=== PATIENT | female | born 1990 | race African-American/Black ===

== ENCOUNTER 2018-08-24 23:28 | Emergency (ER) | payer SELFPAY ==
[2018-08-25 00:30] LABS: ABSOLUTE EOSINOPHILS # (AUTO) 0.2 10^3/uL (0.0-0.6); ABSOLUTE LYMPHOCYTES (AUTO) 4.5 10^3/uL (0.5-4.7); ABSOLUTE MONOCYTES (AUTO) 0.5 10^3/uL (0.1-1.4); ABSOLUTE NEUT (AUTO) 3.5 10^3/uL (1.7-8.2); BASOPHILS % (AUTO) 0.5 % (0-2); EOSINOPHILS % (AUTO) 1.9 % (0-6); HEMATOCRIT 36.3 % (36.0-47.0); HEMOGLOBIN 12.7 g/dL (12.0-15.5); LYMPHOCYTES % (AUTO) 51.5 % (13-45); MEAN CORPUSCULAR HEMOGLOBIN 33.2 pg (27.0-33.4); MEAN CORPUSCULAR HGB CONC 34.9 g/dL (32.0-36.0); MEAN CORPUSCULAR VOLUME 95 fl (80-97); MONOCYTES % (AUTO) 5.5 % (3-13); PLATELET COUNT 253 10^3/uL (150-450); RED BLOOD COUNT 3.82 10^6/uL (3.72-5.28); RED CELL DISTRIBUTION WIDTH 13.2 % (11.5-14.0); SEGMENTED NEUTROPHILS % (AUTO) 40.6 % (42-78); TOTAL CELLS COUNTED % (AUTO) 100 %; WHITE BLOOD COUNT 8.7 10^3/uL (4.0-10.5)
[2018-08-25 00:47] LABS: ALANINE AMINOTRANSFERASE 101 U/L (9-52); ALBUMIN 3.8 g/dL (3.5-5.0); ALKALINE PHOSPHATASE 60 U/L (38-126); ANION GAP 7 (5-19); ASPARTATE AMINO TRANSFERASE 95 U/L (14-36); BILIRUBIN,DIRECT 0.2 mg/dL (0.0-0.4); BILIRUBIN,TOTAL 0.3 mg/dL (0.2-1.3); BLOOD UREA NITROGEN 10 mg/dL (7-20); CALCIUM 9.9 mg/dL (8.4-10.2); CARBON DIOXIDE 28 mmol/L (22-30); CHLORIDE 107 mmol/L (98-107); GLUCOSE 106 mg/dL (75-110); LIPASE 70.8 U/L (23-300); POTASSIUM 4.1 mmol/L (3.6-5.0); SODIUM 141.8 mmol/L (137-145); TOTAL PROTEIN 6.4 g/dL (6.3-8.2)
[2018-08-25] MEDS ORDERED: NORMAL SALINE 1000 ML 1,000 ML IV ONE (01:21)
[2018-08-25] MEDS ORDERED: IBUPROFEN SUSP 100 MG/5 ML ORAL SYRINGE PO ONE (01:28)
[2018-08-25] MEDS ORDERED: ONDANSETRON HCL INJ/PF 4 MG/2 ML SDV IV ONE (01:28)
--- NOTE | 2018-08-25 01:42 | ER Document Report ---
ED Medical Screen (RME) - General Chief Complaint: Abdominal Pain Stated Complaint: ABDOMINAL PAIN Time Seen by Provider: 08/25/18 01:19 Mode of Arrival: Ambulatory Information source: Patient Notes: 28-year-old female presents to ED for abdominal pain nausea with gas type pains to the right upper quadrant. She states she has had similar pain in the past for moving to [place] and they told her that it was a gastric ulcer. She states she has been severely nauseated all day and the pain now is in the right upper quadrant going around to the back. CBC and chemistry were drawn before I examined the patient and she has elevated liver enzymes but no elevated white count. A test was not checked but she states that she is in day monogamous relationship with another female. Patient is alert oriented respirations regular and unlabored, lungs clear, and tenderness to the right upper quadrant. test, Zofran, ibuprofen, and ultrasound of the upper abdomen ordered. I have greeted and performed a rapid initial assessment of this patient. A comprehensive ED assessment and evaluation of the patient, analysis of test results and completion of medical decision making process will be conducted by an additional ED providers. TRAVEL OUTSIDE OF THE U[place] IN LAST 30 DAYS: No - Related Data Allergies/Adverse Reactions: hydrocodone [Hydrocodone] Allergy (Severe, Verified 12/30/15 22:32) naproxen [Naproxen] Allergy (Unknown, Verified 12/30/15 22:32) Past Medical History - Social History Chew tobacco use (# tins/day): No Frequency of alcohol use: None Drug Abuse: None Pulmonary Medical History: Reports: Hx Bronchitis Neurological Medical History: Reports: Hx Migraine, Hx Seizures - last seizure 2008. Renal/ Medical History: Denies: Hx Peritoneal Dialysis Musculoskeltal Medical History: Reports Hx Arthritis, Reports Hx Musculoskeletal Trauma - facial fractures Psychiatric Medical History: Reports: Hx Depression Traumatic Medical History: Reports: Hx Fractures - facial - Immunizations Immunizations up to date: No Hx Diphtheria, Pertussis, Tetanus Vaccination: Yes - 1999 Physical Exam - Vital signs Vitals: Temp Pulse Resp BP Pulse Ox 98.6 F 86 18 136/79 H 98 08/24/18 23:29 08/24/18 23:29 08/24/18 23:29 08/24/18 23:29 08/24/18 23:29 Course - Vital Signs Vital signs: Temp Pulse Resp BP Pulse Ox 98.6 F 86 18 136/79 H 98 08/24/18 23:29 08/24/18 23:29 08/24/18 23:29 08/24/18 23:29 08/24/18 23:29 - Laboratory Result Diagrams: 08/25/18 00:15 08/25/18 00:15 Laboratory results interpreted by me: 08/25/18 08/25/18 00:15 00:15 Seg Neutrophils % 40.6 L Lymphocytes % 51.5 H AST 95 H ALT 101 H
[2018-08-25] MEDS ORDERED: KETOROLAC TROMETHAMINE INJ/PF 30 MG/1 ML SDV IV ONE (02:02)
--- NOTE | 2018-08-25 02:02 | RADIOLOGY REPORT (SQ) ---
EXAM DESCRIPTION: US ABDOMEN DOPPLER LIMITED COMPLETED DATE/TME: 08/25/2018 01:19 CLINICAL HISTORY: 28 years, Female, ruq abdominal pain COMPARISON: None. TECHNIQUE: Limited right upper quadrant ultrasound LIMITATIONS: None. FINDINGS: Echogenic appearance to the liver consistent with fatty infiltrative change. The visualized abdominal aorta, inferior vena cava, right kidney, pancreas are unremarkable. Multiple shadowing stones throughout the gallbladder lumen. No gallbladder wall thickening or pericholecystic fluid. CBD measures 2.1 mm. Negative sonographic Lewis sign. No ascites IMPRESSION: Cholelithiasis. No sonographic evidence for cholecystitis. Fatty infiltrative change to the liver copyright [address] [email or web address]- All Rights Reserved
[2018-08-25 02:11] LABS: APPEARANCE,URINE SLIGHTLY-CLOUDY; BILIRUBIN,URINE NEGATIVE (NEGATIVE); COLOR,URINE YELLOW; GLUCOSE, URINE NEGATIVE (NEGATIVE); KETONES,URINE NEGATIVE (NEGATIVE); LEUKOCYTE ESTERASE,URINE NEGATIVE (NEGATIVE); NITRITE,URINE NEGATIVE (NEGATIVE); PROTEIN,URINE NEGATIVE (NEGATIVE)
[2018-08-25] MEDS ORDERED: FENTANYL CITRATE INJ/PF 100 MCG/2 ML AMPUL IV ONE (02:43)
--- NOTE | 2018-08-25 03:13 | ER Document Report ---
ED General - General Chief Complaint: Abdominal Pain Stated Complaint: ABDOMINAL PAIN Time Seen by Provider: 08/25/18 01:19 Primary Care Provider: LAUREN REEDER FNP-C [Primary Care Provider] - Follow up as needed Mode of Arrival: Ambulatory Notes: RME Provider note: 28-year-old female presents to ED for abdominal pain nausea with gas type pains to the right upper quadrant. She states she has had similar pain in the past for moving to [place] and they told her that it was a gastric ulcer. She states she has been severely nauseated all day and the pain now is in the right upper quadrant going around to the back. CBC and chemistry were drawn before I examined the patient and she has elevated liver enzymes but no elevated white count. A test was not checked but she states that she is in day monogamous relationship with another female. Patient is alert oriented r espirations regular and unlabored, lungs clear, and tenderness to the right upper quadrant. test, Zofran, ibuprofen, and ultrasound of the upper abdomen ordered. MY HPI: Patient states she has also had intermittent episodes of diarrhea, is denying any blood. She stated she is nauseous but is denying any vomiting. Patient states her last menstrual period was July 27. TRAVEL OUTSIDE OF THE U.S. IN LAST 30 DAYS: No - Related Data Allergies/Adverse Reactions: hydrocodone [Hydrocodone] Allergy (Severe, Verified 12/30/15 22:32) naproxen [Naproxen] Allergy (Unknown, Verified 12/30/15 22:32) Past Medical History - General Information source: Patient - Social History Smoking Status: Current Every Day Smoker Chew tobacco use (# tins/day): No Frequency of alcohol use: None Drug Abuse: None Family History: Reviewed & Not Pertinent, Arthritis, CAD, CVA, DM, Hyperlipidemia, Hypertension, Malignancy, Thyroid Disfunction Patient has suicidal ideation: No Patient has homicidal ideation: No Pulmonary Medical History: Reports: Hx Bronchitis Neurological Medical History: Reports: Hx Migraine, Hx Seizures - last seizure 2008. Renal/ Medical History: Denies: Hx Peritoneal Dialysis Musculoskeletal Medical History: Reports Hx Arthritis, Reports Hx Muscu loskeletal Trauma - facial fractures Psychiatric Medical History: Reports: Hx Depression Traumatic Medical History: Reports: Hx Fractures - facial - Immunizations Immunizations up to date: No Hx Diphtheria, Pertussis, Tetanus Vaccination: Yes - 1999 Hx Pneumococcal Vaccination: 06/21/00 Review of Systems - Review of Systems Constitutional: No symptoms reported. denies: Fever EENT: No symptoms reported Cardiovascular: No symptoms reported Respiratory: No symptoms reported Gastrointestinal: See HPI Genitourinary: No symptoms reported. denies: Burning, Dysuria Female Genitourinary: See HPI Musculoskeletal: See HPI Skin: No symptoms reported Hematologic/Lymphatic: No symptoms reported Neurological/Psychological: No symptoms reported Physical Exam - Vital signs Vitals: Temp Pulse Resp BP Pulse Ox 98.6 F 86 18 136/79 H 98 08/24/18 23:29 08/24/18 23:29 08/24/18 23:29 08/24/18 23:29 08/24/18 23:29 - Notes Notes: GENERAL: Alert, interacts well. No acute distress. HEAD: Normocephalic, atraumatic. EYES: Pupils equal, round, and reactive to light. Extraocular movements intact. ENT: Oral mucosa moist, tongue midline. NECK: Full range of motion. Supple. Trachea midline. LUNGS: Clear to auscultation bilaterally, no wheezes, rales, or rhonchi. No respiratory distress. HEART: Regular rate and rhythm. No murmur ABDOMEN: Soft, positive Lewis sign noted, minor epigastric abdominal pain. No McBurney's point tenderness. Non-distended. Bowel sounds present in all 4 quadrants. EXTREMITIES: Moves all 4 extremities spontaneously. No edema, normal radial and dorsalis pedis pulses bilaterally. No cyanosis. BACK: no cervical, thoracic, lumbar midline tenderness. No saddle anesthesia, normal distal neurovascular exam. No CVA tenderness noted bilaterally NEUROLOGICAL: Alert and oriented x3. Normal speech. cranial nerves II through XII grossly intact PSYCH: Normal affect, normal mood. SKIN: Warm, dry, normal turgor. No rashes or lesions noted. Course - Re-evaluation Re-evalutation: Patient's labs show no signs of leukocytosis, no signs of anemia, no signs of electrolyte abnormalities. She does have an increase in her LFTs, hCG is negative, urine is also negative for infection. Patient's ultrasound shows cholelithiasis with a fatty liver, no signs of cholecystitis. Discussed this at length with patient at bedside. She states that she is moving to [place] so she does not want referrals for our surgeons or to [facility] due to her not being insured. Patient states when she gets her insurance back she will follow- up with a primary care provider in [place]. Patient states initial Toradol did not help her pain at all. Fentanyl has helped her discomfort. Patient states she has to be awake in order to take care of her children during the day so she does not want narcotic pain medications. Discussed return precautions and need for close follow-up with primary care provider and/or surgery. - Vital Signs Vital signs: Temp Pulse Resp BP Pulse Ox 98.2 F 64 16 133/79 H 100 08/25/18 02:13 08/25/18 02:13 08/25/18 02:13 08/25/18 02:13 08/25/18 02:13 - Laboratory Result Diagrams: 08/25/18 00:15 08/25/18 00:15 Laboratory results interpreted by me: 08/25/18 08/25/18 08/25/18 00:15 00:15 00:15 Seg Neutrophils % 40.6 L Lymphocytes % 51.5 H AST 95 H ALT 101 H Urine Urobilinogen 2.0 H Discharge - Discharge Clinical Impression: Fatty liver Cholelithiasis Qualifiers: Cholelithiasis location: other site Biliary obstruction: without biliary obstruction Qualified Code(s): K80.80 - Other cholelithiasis without obstruction Condition: Stable Disposition: HOME, SELF-CARE Instructions: Gallbladder Disease ([facility]) Additional Instructions: As we discussed you have been seen and treated in the emergency department for gallstones. You were seen for pain in your abdomen that is likely related to gallstones. Your work-up today does not show any signs that you need to have your gallbladder removed tonight. However, you will likely need surgery as an outpatient in the coming weeks. Please contact the surgery clinic in the next 24-48 hours to discuss the need for further evaluation and consideration of surgery. Return to the ED immediately if you develop worsening pain, persistent vomiting, become unable to tolerate fluids, have a fever of >100.4, or any other symptoms that are concerning to you. Because an inflammation in your gallbladder. At this point time there is no infection noted. Prescriptions: Ketorolac Tromethamine [Toradol 10 mg Tablet] 10 mg PO Q8HP PRN #24 tablet PRN Reason: Ondansetron [Zofran Odt 4 mg Tablet] 1 - 2 tab PO Q6 #10 tab.rapdis Forms: Return to Work Referrals: LAUREN REEDER, SUSTAINABILITY ANALYST-C [Primary Care Provider] - Follow up as needed
[2018-08-25 03:32] VITALS: BP 118/65
== END 2018-08-25 03:38 | disposition home or self-care (01) ==
LOC: ER 23:28
DX: K80.20 Calculus of gallbladder without cholecystitis without obstruction (principal); K76.0 Fatty (change of) liver, not elsewhere classified; R10.11 Right upper quadrant pain; R10.13 Epigastric pain; R14.1 Gas pain; R11.0 Nausea; R19.7 Diarrhea, unspecified; F17.200 Nicotine dependence, unspecified, uncomplicated; Z88.5 Allergy status to narcotic agent; Z88.8 Allergy status to other drugs, medicaments and biological substances
CPT/HCPCS: 99284; 96361; 96374; 96375; 36415; 83690; 84703; 85025; 80053; 81001; 76705; 93976; J3010; J1885; J2405; J7030

== ENCOUNTER 2018-08-25 08:29 | Inpatient (IN) | payer SELFPAY ==
[2018-08-25] MEDS ORDERED: NORMAL SALINE 1000 ML 1,000 ML IV ONE (09:57)
[2018-08-25] MEDS ORDERED: ONDANSETRON HCL INJ/PF 4 MG/2 ML SDV IV ONE (09:57)
[2018-08-25] MEDS ORDERED: MORPHINE SULFATE 10 MG/ML INJ IV ONE (09:57)
[2018-08-25 11:16] LABS: ABSOLUTE EOSINOPHILS # (AUTO) 0.1 10^3/uL (0.0-0.6); ABSOLUTE MONOCYTES (AUTO) 0.3 10^3/uL (0.1-1.4); ABSOLUTE NEUT (AUTO) 2.1 10^3/uL (1.7-8.2); BASOPHILS % (AUTO) 0.9 % (0-2); EOSINOPHILS % (AUTO) 1.7 % (0-6); HEMATOCRIT 36.8 % (36.0-47.0); HEMOGLOBIN 12.7 g/dL (12.0-15.5); LYMPHOCYTES % (AUTO) 43.3 % (13-45); MEAN CORPUSCULAR HEMOGLOBIN 32.8 pg (27.0-33.4); MEAN CORPUSCULAR HGB CONC 34.6 g/dL (32.0-36.0); MEAN CORPUSCULAR VOLUME 95 fl (80-97); MONOCYTES % (AUTO) 6.9 % (3-13); PLATELET COUNT 230 10^3/uL (150-450); RED BLOOD COUNT 3.87 10^6/uL (3.72-5.28); RED CELL DISTRIBUTION WIDTH 12.7 % (11.5-14.0); SEGMENTED NEUTROPHILS % (AUTO) 47.2 % (42-78); TOTAL CELLS COUNTED % (AUTO) 100 %; WHITE BLOOD COUNT 4.5 10^3/uL (4.0-10.5)
[2018-08-25 11:34] LABS: ALANINE AMINOTRANSFERASE 532 U/L (9-52); ALBUMIN 3.6 g/dL (3.5-5.0); ALKALINE PHOSPHATASE 75 U/L (38-126); ANION GAP 6 (5-19); ASPARTATE AMINO TRANSFERASE 716 U/L (14-36); BILIRUBIN,DIRECT 0.8 mg/dL (0.0-0.4); BLOOD UREA NITROGEN 8 mg/dL (7-20); CALCIUM 9.5 mg/dL (8.4-10.2); CARBON DIOXIDE 26 mmol/L (22-30); CHLORIDE 109 mmol/L (98-107); GLUCOSE 91 mg/dL (75-110); LIPASE 886.9 U/L (23-300); POTASSIUM 4.2 mmol/L (3.6-5.0); TOTAL PROTEIN 5.8 g/dL (6.3-8.2)
--- NOTE | 2018-08-25 12:54 | RADIOLOGY REPORT (SQ) ---
EXAM DESCRIPTION: CT ABD/PELVIS WITH IV ORAL COMPLETED DATE/TIME: 08/25/2018 12:35 pm REASON FOR STUDY: Cholelithiasis diffuse abdominal pain COMPARISON: None. TECHNIQUE: CT scan of the abdomen and pelvis performed using helical scanning technique with oral co ntrast and with dynamic intravenous contrast injection. Images reviewed with lung, soft tissue, and b one windows. Reconstructed coronal and sagittal MPR images reviewed. Delayed images for evaluation of the urinary system also acquired. All images stored on PACS. All CT scanners at this facility use dose modulation, iterative reconstruction, and/or weight based d osing when appropriate to reduce radiation dose to as low as reasonably achievable (ALARA). [facility]: Dose Right [facility]: CareDose [facility]: Dose Right [facility]: Teradose 4D [facility]: Choister CONTRAST TYPE AND DOSE: contrast/concentration: Isovue 350.00 mg/ml; Total Contrast Delivered: 100.0 ml; Total Saline Delivered: 72.0 ml RENAL FUNCTION: BUN 10 creatinine 0.72. RADIATION DOSE: CT Rad equipment meets quality standard of care and radiation dose reduction techniq ues were employed. CTDIvol: 18.5 - 20.2 mGy. DLP: 2040 mGy-cm.. LIMITATIONS: None. FINDINGS: LOWER CHEST: No significant findings. No nodules or infiltrates. LIVER: Normal size. No masses. No dilated ducts. SPLEEN: Normal size. No focal lesions. PANCREAS: No masses. No significant calcifications. No adjacent inflammation or peripancreatic fluid collections. Pancreatic duct not dilated. GALLBLADDER: Gallstones. No inflammatory changes to suggest cholecystitis. ADRENAL GLANDS: No significant masses or asymmetry. RIGHT KIDNEY AND URETER: No solid masses. No significant calcifications. No hydronephrosis or hyd roureter. LEFT KIDNEY AND URETER: No solid masses. No significant calcifications. No hydronephrosis or hydr oureter. AORTA AND VESSELS: No aneurysm. No dissection. Renal arteries, SMA, celiac without stenosis. RETROPERITONEUM: No retroperitoneal adenopathy, hemorrhage or masses. BOWEL AND PERITONEAL CAVITY: No masses or inflammatory changes. No free fluid or peritoneal masses. APPENDIX: Normal. PELVIS: No mass. No free fluid. Normal bladder. ABDOMINAL WALL: No masses. Diastases of the rectus abdominus muscles. BONES: No significant or acute findings. OTHER: No other significant finding. IMPRESSION: GALLSTONES. NO OTHER SIGNIFICANT OR ACUTE FINDING IN THE ABDOMEN OR PELVIS ON CT SCAN W ITH IV CONTRAST. TECHNICAL DOCUMENTATION: JOB ID: [id number] Quality ID # [id number]: Final reports with documentation of one or more dose reduction techniques (e.g., Au tomated exposure control, adjustment of the mA and/or kV according to patient size, use of iterative reconstruction technique) 2010 [employer]- All Rights Reserved Reading location - IP/workstation name: [email or web address]
--- NOTE | 2018-08-25 13:00 | ER Document Report ---
ED General - General Chief Complaint: Abdominal Pain Stated Complaint: ABDOMINAL PAIN Time Seen by Provider: 08/25/18 09:01 TRAVEL OUTSIDE OF THE U.S. IN LAST 30 DAYS: No - HPI Patient complains to provider of: Abdominal pain Notes: Patient coming in for evaluation of abdominal pain. Patient was seen night prior to arrival discharged approximately 3 AM. Patient states abdominal pain and vomiting continued F which came back to the ER for further evaluation. Previous note laboratory studies along ultrasound were reviewed. Patient upon my evaluation is an obese female patient is unable to localize any pain but is rubbing her abdomen stating that she hurts all over. Patient denies any diarrhea. Denies any trauma to the area. Patient looks to be in no obvious distress upon my evaluation - Related Data Allergies/Adverse Reactions: hydrocodone [Hydrocodone] Allergy (Severe, Verified 12/30/15 22:32) naproxen [Naproxen] Allergy (Unknown, Verified 12/30/15 22:32) Past Medical History - Social History Smoking Status: Unknown if Ever Smoked Family History: Reviewed & Not Pertinent, Arthritis, CAD, CVA, DM, Hyperlipidemia, Hypertension, Malignancy, Thyroid Disfunction Patient has suicidal ideation: No Patient has homicidal ideation: No Pulmonary Medical History: Reports: Hx Bronchitis Neurological Medical History: Reports: Hx Migraine, Hx Seizures - last seizure 2008. Renal/ Medical History: Denies: Hx Peritoneal Dialysis Musculoskeletal Medical History: Reports Hx Arthritis, Reports Hx Musculoskeletal Trauma - facial fractures Psychiatric Medical History: Reports: Hx Depression Traumatic Medical History: Reports: Hx Fractures - facial - Immunizations Immunizations up to date: No Hx Diphtheria, Pertussis, Tetanus Vaccination: Yes - 1999 Hx Pneumococcal Vaccination: 06/21/00 Review of Systems - Review of Systems Constitutional: No symptoms reported EENT: No symptoms reported Cardiovascular: No symptoms reported Respiratory: No symptoms reported Gastrointestinal: Abdominal pain, Nausea, Vomiting Genitourinary: No symptoms reported Female Genitourinary: No symptoms reported Musculoskeletal: No symptoms reported Skin: No symptoms reported Hematologic/Lymphatic: No symptoms reported Neurological/Psychological: No symptoms reported -: Yes All other systems reviewed and negative Physical Exam - Vital signs Vitals: Temp Pulse Resp BP Pulse Ox 98.2 F 74 18 126/66 H 100 08/25/18 08:44 08/25/18 08:44 08/25/18 08:44 08/25/18 08:44 08/25/18 08:44 Interpretation: Normal - General General appearance: Appears well, Alert - HEENT Head: Normocephalic, Atraumatic Eyes: Normal Pupils: PERRL - Respiratory Respiratory status: No respiratory distress Chest status: Nontender Breath sounds: Normal Chest palpation: Normal - Cardiovascular Rhythm: Regular Heart sounds: Normal auscultation Murmur: No - Abdominal Inspection: Obese Distension: No distension Bowel sounds: Normal Tenderness: Tender - Diffuse tenderness Organomegaly: No organomegaly - Back Back: Normal, Nontender - Extremities General upper extremity: Normal inspection, Nontender, Normal color, Normal ROM, Normal temperature General lower extremity: Normal inspection, Nontender, Normal color, Normal ROM, Normal temperature, Normal weight bearing. No: Yosi's sign - Neurological Neuro grossly intact: Yes Cognition: Normal Orientation: AAOx4 Jason Coma Scale Eye Opening: Spontaneous Jason Coma Scale Verbal: Oriented [place] Coma Scale Motor: Obeys Commands Jason Coma Scale Total: 15 Speech: Normal Motor strength normal: LUE, RUE, LLE, RLE Sensory: Normal - Psychological Associated symptoms: Normal affect, Normal mood - Skin Skin Temperature: Warm Skin Moisture: Dry Skin Color: Normal Course - Re-evaluation Re-evalutation: 08/25/18 12:56 Reviewed previous lab work and ultrasound. These were performed approximately 1 to 3:00 in the morning. Patient's physical examination reveals diffuse tenderness but no focal point. I discussed the case with the surgeon on-call Dr. Fischer who did come down and evaluate the patient at bedside. Dr Fischer Recommends a CT iv oral for further evaluation also will repeat laboratory studies states CT scans otherwise normal will admit the patient for cholecystectomy 08/25/18 12:57 - Vital Signs Vital signs: Temp Pulse Resp BP Pulse Ox 98.2 F 74 18 126/66 H 100 08/25/18 08:44 08/25/18 08:44 08/25/18 08:44 08/25/18 08:44 08/25/18 08:44 - Laboratory Result Diagrams: 08/25/18 11:02 08/25/18 11:02 Laboratory results interpreted by me: 08/25/18 11:02 Chloride 109 H Direct Bilirubin 0.8 H AST 716 H ALT 532 H Total Protein 5.8 L Lipase 886.9 H Discharge - Discharge Clinical Impression: Cholelithiasis, Elevated LFTs Condition: Good Disposition: ADMITTED OBSERVATION Admitting Provider: Surgicalist - [facility] Admitted: OR
--- NOTE | 2018-08-25 14:04 | PDOC H&P ---
History of Present Illness Admission Date/PCP: KOLBY DIAZ Patient complains of: Abdominal pain History of Present Illness: CHACORTA PLATA is a 28 year old female presenting with a several day history of diffuse abdominal pain especially in the right upper quadrant with associated nausea and vomiting. Some diarrhea yesterday. No fever. No jaundice. Denies any alcohol abuse. No history of trauma. Past Medical History Pulmonary Medical History: Reports: Bronchitis Neurological Medical History: Reports: Migraine, Seizures - last seizure 2008. Musculoskeltal Medical History: Reports: Arthritis Psychiatric Medical History: Reports: Depression Past Surgical History Past Surgical History: Reports: Other - Eye surgery for trauma in the remote past. Social History Smoking Status: Current Some Day Smoker Frequency of Alcohol Use: Rare Hx Recreational Drug Use: No Hx Prescription Drug Abuse: No Family History Family History: Reviewed & Not Pertinent, Arthritis, CAD, CVA, DM, Hyperlipidemia, Hypertension, Malignancy, Thyroid Disfunction Parental Family History Reviewed: Yes Children Family History Reviewed: Yes Sibling(s) Family History Reviewed.: Yes Medication/Allergy Home Medications: No.137/Iron/Folic Acd [ Tablet] 1 each PO DAILY 09/02/14 Ibuprofen 1 tab PO Q8HP PRN 03/03/15 Oxycodone HCl/Acetaminophen [Percocet 5-325 mg Tablet] 1 - 2 tab PO Q4H PRN #10 tablet 08/11/15 Penicillin V Potassium [Penicillin Vk 500 mg Tablet] 500 mg PO Q6 #40 tablet 08/11/15 Promethazine HCl [Phenergan 25 mg Tablet] 25 - 50 mg PO ASDIR PRN #12 tablet 12/01/15 Ondansetron [Zofran Odt] 8 mg PO Q8HP PRN #10 tab.rapdis 12/31/15 Ketorolac Tromethamine [Toradol 10 mg Tablet] 10 mg PO Q8HP PRN #24 tablet 08/25/18 Ondansetron [Zofran Odt 4 mg Tablet] 1 - 2 tab PO Q6 #10 tab.rapdis 08/25/18 Allergies/Adverse Reactions: hydrocodone [Hydrocodone] Allergy (Severe, Verified 12/30/15 22:32) naproxen [Naproxen] Allergy (Unknown, Verified 12/30/15 22:32) Physical Exam Vital Signs: Temp Pulse Resp BP Pulse Ox 98.2 F 74 18 126/66 H 100 08/25/18 08:44 08/25/18 08:44 08/25/18 08:44 08/25/18 08:44 08/25/18 08:44 General appearance: PRESENT: no acute distress, cooperative Eye exam: PRESENT: conjunctiva pink Neck exam: PRESENT: other - Supple with no tenderness and no masses Respiratory exam: PRESENT: clear to auscultation mniisterio Cardiovascular exam: PRESENT: RRR GI/Abdominal exam: PRESENT: other - Soft, nondistended, tenderness across her upper abdomen especially the right upper quadrant but without peritoneal signs. Extremities exam: PRESENT: other - No swelling Neurological exam: PRESENT: alert, awake Psychiatric exam: PRESENT: appropriate affect Skin exam: PRESENT: warm Results Laboratory Results: 08/25/18 11:02 08/25/18 11:02 08/25/18 08/25/18 08/25/18 11:02 11:02 11:02 WBC 4.5 RBC 3.87 Hgb 12.7 Hct 36.8 MCV 95 MCH 32.8 MCHC 34.6 RDW 12.7 Plt Count 230 Seg Neutrophils % 47.2 Lymphocytes % 43.3 Monocytes % 6.9 Eosinophils % 1.7 Basophils % 0.9 Absolute Neutrophils 2.1 Absolute Lymphocytes 2.0 Absolute Monocytes 0.3 Absolute Eosinophils 0.1 Absolute Basophils 0.0 Sodium 141.0 Potassium 4.2 Chloride 109 H Carbon Dioxide 26 Anion Gap 6 BUN 8 Creatinine 0.70 Est GFR ( Amer) > 60 Est GFR (Non-Af Amer) > 60 Glucose 91 Lactic Acid 0.8 Calcium 9.5 Total Bilirubin 1.0 AST 716 H ALT 532 H Alkaline Phosphatase 75 Total Protein 5.8 L Albumin 3.6 Lipase 886.9 H Impressions: Abdomen/Pelvis CT 08/25/18 09:57 IMPRESSION: GALLSTONES. NO OTHER SIGNIFICANT OR ACUTE FINDING IN THE ABDOMEN OR PELVIS ON CT SCAN WITH IV CONTRAST. Assessment & Plan - Diagnosis (1) Gallstone pancreatitis Is this a current diagnosis for this admission?: Yes Plan: Will admit. Placed on bowel rest and IV fluids and IV pain medication. Once pancreatitis has subsided she can undergo a laparoscopic cholecystectomy with intraoperative cholangiogram and possible ERCP if needed.
[2018-08-25] MEDS ORDERED: HYDROMORPHONE HCL INJ/PF 2 MG/ML AMPULE IV PRN (14:08)
[2018-08-25] MEDS: NORMAL SALINE 1000 ML 1,000 ML IV PRN ×2 (16:20→22:34)
[2018-08-26] MEDS: NORMAL SALINE 1000 ML 1,000 ML IV PRN ×3 (05:09→21:37)
[2018-08-26 07:28] LABS: HEMATOCRIT 35.1 % (36.0-47.0); HEMOGLOBIN 12.3 g/dL (12.0-15.5); MEAN CORPUSCULAR HEMOGLOBIN 33.1 pg (27.0-33.4); MEAN CORPUSCULAR HGB CONC 34.9 g/dL (32.0-36.0); MEAN CORPUSCULAR VOLUME 95 fl (80-97); PLATELET COUNT 213 10^3/uL (150-450); WHITE BLOOD COUNT 5.2 10^3/uL (4.0-10.5)
[2018-08-26 07:51] LABS: ALANINE AMINOTRANSFERASE 460 U/L (9-52); ALBUMIN 3.4 g/dL (3.5-5.0); ALKALINE PHOSPHATASE 98 U/L (38-126); ANION GAP 8 (5-19); ASPARTATE AMINO TRANSFERASE 363 U/L (14-36); BILIRUBIN,DIRECT 2.3 mg/dL (0.0-0.4); BILIRUBIN,TOTAL 3.4 mg/dL (0.2-1.3); BLOOD UREA NITROGEN 6 mg/dL (7-20); CALCIUM 9.1 mg/dL (8.4-10.2); CARBON DIOXIDE 24 mmol/L (22-30); CHLORIDE 110 mmol/L (98-107); GLUCOSE 81 mg/dL (75-110); LIPASE 73.3 U/L (23-300); SODIUM 141.8 mmol/L (137-145); TOTAL PROTEIN 5.8 g/dL (6.3-8.2)
[2018-08-26] MEDS: MORPHINE SULFATE 10 MG/ML INJ IV PRN ×2 (09:35→13:35)
[2018-08-26] MEDS ORDERED: PIPERACILLIN/TAZOBACTAM 3.375 GM VIAL IV ONE (13:10)
[2018-08-26] MEDS ORDERED: PIPERACILLIN/TAZOBACTAM 3.375 GM VIAL IV SCH (13:15)
--- NOTE | 2018-08-26 13:21 | PDOC PROGRESS REPORT ---
Subjective Progress Note for:: 08/26/18 Subjective:: c/o epigastric and diffuse abdominal pain Reason For Visit: GALLSTONE PANCREATITIS Physical Exam Vital Signs: Temp Pulse Resp BP Pulse Ox 98.2 F 67 16 133/74 H 98 08/26/18 11:09 08/26/18 11:09 08/26/18 11:09 08/26/18 11:09 08/26/18 11:09 Intake & Output 08/25/18 08/26/18 08/27/18 06:59 06:59 06:59 Intake Total 1922 Balance 1922 Weight 100.4 kg General appearance: PRESENT: mild distress Respiratory exam: PRESENT: clear to auscultation ministerio Cardiovascular exam: PRESENT: RRR GI/Abdominal exam: PRESENT: hypoactive bowel sounds, soft, tenderness - diffuse with grimacin Results Laboratory Results: 08/26/18 06:19 08/26/18 06:19 08/26/18 08/26/18 06:19 06:19 WBC 5.2 RBC 3.70 L Hgb 12.3 Hct 35.1 L MCV 95 MCH 33.1 MCHC 34.9 RDW 13.0 Plt Count 213 Sodium 141.8 Potassium 4.0 Chloride 110 H Carbon Dioxide 24 Anion Gap 8 BUN 6 L Creatinine 0.74 Est GFR ( Amer) > 60 Est GFR (Non-Af Amer) > 60 Glucose 81 Calcium 9.1 Total Bilirubin 3.4 H AST 363 H ALT 460 H Alkaline Phosphatase 98 Total Protein 5.8 L Albumin 3.4 L Lipase 73.3 Impressions: Abdomen/Pelvis CT 08/25/18 09:57 IMPRESSION: GALLSTONES. NO OTHER SIGNIFICANT OR ACUTE FINDING IN THE ABDOMEN OR PELVIS ON CT SCAN WITH IV CONTRAST. Assessment & Plan - Diagnosis (2) Cholelithiasis Qualifiers: Cholelithiasis location: gallbladder Cholecystitis acuity: acute Is this a current diagnosis for this admission?: Yes - Plan Summary Plan Summary: A/ Diffuse abdominal pain secondary to gallbladder pancreatitis Normalized Lipase today Tripled total bilirubin (3.4, direct 2,3) decreased AST/ALT (363, 460, respectively) Concerned about CBD blockage P/ continue NPO Continue IVF Start Zosyn 3.375 IVPB q6 Daily labs (CBC, CMP, Amylase/lipase) US GB stat HIDA scan stat MRCP stat to follow above tests
[2018-08-26] MEDS: FAMOTIDINE INJ/PF 20 MG/2 ML SDV IV SCH ×2 (14:33→21:37)
--- NOTE | 2018-08-26 15:39 | RADIOLOGY REPORT (SQ) ---
EXAM DESCRIPTION: MRI ABDOMEN WITHOUT COMPLETED DATE/TIME: 08/26/2018 3:16 pm REASON FOR STUDY: gallstone pancreatitis; elevated bilirubin COMPARISON: Right upper quadrant ultrasound 08/25/2018 CT abdomen pelvis 08/25/2018 TECHNIQUE: Noncontrast MRCP. Source and MIP images reviewed. LIMITATIONS: None. FINDINGS: GALLBLADDER: Filled with tiny stones. Pericholecystic fluid. INTRAHEPATIC DUCTS: Nondilated. EXTRAHEPATIC DUCTS: Common duct is normal caliber. No dilatation of the pancreatic duct. No ductal filling defects noted. PANCREAS: Generally homogeneous, no gross mass or significant signal alteration. No surrounding infl ammatory changes or fluid. Pancreatic duct is normal. LIVER, SPLEEN, KIDNEYS, ADRENALS: No significant abnormality. VESSELS: No evidence of aneurysm. Grossly appropriate flow voids in the major vascular structures. LUNG BASES: Grossly clear. OTHER: No other significant finding. IMPRESSION: Gallbladder is filled with multiple tiny stones. Pericholecystic fluid. No MR evidence of common duct stones. Imaging reviewed with Dr. Quach TECHNICAL DOCUMENTATION: JOB ID: [id number] [employer]- All Rights Reserved Reading location - IP/workstation name: [email or web address]
[2018-08-26] MEDS ORDERED: METOCLOPRAMIDE HCL INJ/PF 10 MG/2 ML SDV IV PRN (16:03)
[2018-08-26] MEDS: PIPERACILLIN SODIUM/TAZOBACTAM 3.375 GM in NORMAL SALINE 100 ML IV SCH ×2 (16:10→21:39)
[2018-08-26] MEDS: METOCLOPRAMIDE HCL INJ/PF 10 MG/2 ML SDV ONE ×2 (16:11→16:12)
[2018-08-26] MEDS ORDERED: PROMETHAZINE HCL 25 MG SUPP.RECT PR ONE (16:19)
--- NOTE | 2018-08-26 21:01 | RADIOLOGY REPORT (SQ) ---
EXAM DESCRIPTION: NM HEPATOBILIARY WITHOUT PHARM COMPLETED DATE/TME: 08/26/2018 00:00 CLINICAL HISTORY: gallstone pancreatitis, elevated bilirubin 2.3; COMPARISON: 08/25/2018 CT, 08/26/2018 MRI. FINDINGS: 5.33 mCi of technetium 99 M mebrofenin was administered. There is adequate uptake and excretion of the radiotracer by the liver. Activity is noted within the small bowel by approximately 20 to 22 minutes. Activity is noted within the gallbladder before the end of one hour imaging. No evidence of ductal obstruction or cholecystitis. IMPRESSION: Normal exam.
[2018-08-27] MEDS: PIPERACILLIN SODIUM/TAZOBACTAM 3.375 GM in NORMAL SALINE 100 ML IV SCH ×4 (04:00→21:57)
[2018-08-27] MEDS: NORMAL SALINE 1000 ML 1,000 ML IV PRN ×2 (05:21→17:43)
[2018-08-27 06:32] LABS: ABSOLUTE EOSINOPHILS # (AUTO) 0.1 10^3/uL (0.0-0.6); ABSOLUTE LYMPHOCYTES (AUTO) 2.1 10^3/uL (0.5-4.7); ABSOLUTE MONOCYTES (AUTO) 0.4 10^3/uL (0.1-1.4); ABSOLUTE NEUT (AUTO) 2.9 10^3/uL (1.7-8.2); BASOPHILS % (AUTO) 0.7 % (0-2); EOSINOPHILS % (AUTO) 1.8 % (0-6); HEMATOCRIT 28.2 % (36.0-47.0); HEMOGLOBIN 9.9 g/dL (12.0-15.5); LYMPHOCYTES % (AUTO) 37.7 % (13-45); MEAN CORPUSCULAR HEMOGLOBIN 33.6 pg (27.0-33.4); MEAN CORPUSCULAR HGB CONC 35.2 g/dL (32.0-36.0); MEAN CORPUSCULAR VOLUME 96 fl (80-97); MONOCYTES % (AUTO) 7.1 % (3-13); PLATELET COUNT 175 10^3/uL (150-450); RED BLOOD COUNT 2.96 10^6/uL (3.72-5.28); SEGMENTED NEUTROPHILS % (AUTO) 52.7 % (42-78); TOTAL CELLS COUNTED % (AUTO) 100 %; WHITE BLOOD COUNT 5.6 10^3/uL (4.0-10.5)
[2018-08-27 06:59] LABS: LIPASE 52.8 U/L (23-300)
[2018-08-27 07:01] LABS: ALANINE AMINOTRANSFERASE 279 U/L (9-52); ALBUMIN 2.9 g/dL (3.5-5.0); ALKALINE PHOSPHATASE 84 U/L (38-126); ANION GAP 12 (5-19); ASPARTATE AMINO TRANSFERASE 121 U/L (14-36); BILIRUBIN,DIRECT 0.6 mg/dL (0.0-0.4); BILIRUBIN,TOTAL 1.3 mg/dL (0.2-1.3); BLOOD UREA NITROGEN 7 mg/dL (7-20); CARBON DIOXIDE 23 mmol/L (22-30); CHLORIDE 109 mmol/L (98-107); GLUCOSE 72 mg/dL (75-110); POTASSIUM 3.2 mmol/L (3.6-5.0); SODIUM 143.7 mmol/L (137-145); TOTAL PROTEIN 5.5 g/dL (6.3-8.2)
[2018-08-27] MEDS: FAMOTIDINE INJ/PF 20 MG/2 ML SDV IV SCH ×2 (09:38→21:57)
--- NOTE | 2018-08-27 11:32 | PDOC PROGRESS REPORT ---
Subjective Progress Note for:: 08/27/18 Subjective:: comfortable Reason For Visit: GALLSTONE PANCREATITIS Physical Exam Vital Signs: Temp Pulse Resp BP Pulse Ox 98.4 F 63 18 115/62 98 08/27/18 08:11 08/27/18 08:11 08/27/18 08:11 08/27/18 08:11 08/27/18 08:11 Intake & Output 08/26/18 08/27/18 08/28/18 06:59 06:59 07:59 Intake Total 1922 3300 Output Total 1 Balance 2 3300 -1 Weight 100.4 kg 99.4 kg General appearance: PRESENT: no acute distress Respiratory exam: PRESENT: clear to auscultation ministerio Cardiovascular exam: PRESENT: RRR GI/Abdominal exam: PRESENT: hypoactive bowel sounds, soft Results Laboratory Results: 08/27/18 05:24 08/27/18 05:24 08/27/18 08/27/18 08/27/18 05:24 05:24 05:24 WBC 5.6 RBC 2.96 L Hgb 9.9 L D Hct 28.2 L MCV 96 MCH 33.6 H MCHC 35.2 RDW 13.0 Plt Count 175 Seg Neutrophils % 52.7 Lymphocytes % 37.7 Monocytes % 7.1 Eosinophils % 1.8 Basophils % 0.7 Absolute Neutrophils 2.9 Absolute Lymphocytes 2.1 Absolute Monocytes 0.4 Absolute Eosinophils 0.1 Absolute Basophils 0.0 Sodium 143.7 Potassium 3.2 L Chloride 109 H Carbon Dioxide 23 Anion Gap 12 BUN 7 Creatinine 0.71 Est GFR ( Amer) > 60 Est GFR (Non-Af Amer) > 60 Glucose 72 L Calcium 8.0 L Total Bilirubin 1.3 AST 121 H ALT 279 H Alkaline Phosphatase 84 Total Protein 5.5 L Albumin 2.9 L Amylase 41 Lipase 52.8 Impressions: Abdomen/Pelvis CT 08/25/18 09:57 IMPRESSION: GALLSTONES. NO OTHER SIGNIFICANT OR ACUTE FINDING IN THE ABDOMEN OR PELVIS ON CT SCAN WITH IV CONTRAST. Abdomen MRI 08/26/18 00:00 IMPRESSION: Gallbladder is filled with multiple tiny stones. Pericholecystic fluid. No MR evidence of common duct stones. Imaging reviewed with Dr. Quach Hepatobiliary Scan Nuclear Medicine 08/26/18 00:00 IMPRESSION: Normal exam. Assessment & Plan - Diagnosis (2) Cholelithiasis Qualifiers: Cholelithiasis location: gallbladder Cholecystitis acuity: acute Is this a current diagnosis for this admission?: Yes - Plan Summary Plan Summary: A/ resolved gallstone pancreatitis Ligia;l bilirubin and Amuylas/Lipase WBC normnal Nrgaive MRCP and HIDA scan P/ laparoscopic cholecyztecotmy, possible open, possible cholangiogram Procedure, risks, benefits, complications including common bile duct injury and or bleeding from the liver requiring transfer to a tertiary center for open repair have keerthi discussed with patient and family, they understand, their questions were answered, and she decided to proceed.
[2018-08-27] MEDS ORDERED: FENTANYL CITRATE INJ/PF 250 MCG/5 ML AMPULE ONE (12:19)
[2018-08-27] MEDS ORDERED: HYDROMORPHONE HCL INJ/PF 2 MG/ML AMPULE ONE (12:20)
[2018-08-27] MEDS ORDERED: MIDAZOLAM 2 MG/2 ML INJ ONE (12:20)
[2018-08-27] MEDS ORDERED: PROPOFOL INJ 200 MG/20 ML VIAL IV ONE (12:20)
[2018-08-27] MEDS ORDERED: BUPIVACAINE HCL 0.5%-EPI 1:200000 INJ/PF 30 ML VIAL ONE (12:25)
[2018-08-27] MEDS ORDERED: PROMETHAZINE HCL INJ 25 MG/1 ML VIAL IV PRN (13:12)
[2018-08-27] MEDS ORDERED: FENTANYL CITRATE INJ/PF 100 MCG/2 ML AMPUL IV PRN ×3 (13:12)
[2018-08-27] MEDS ORDERED: MORPHINE SULFATE 10 MG/ML INJ IV PRN ×2 (13:12→14:53)
[2018-08-27] MEDS ORDERED: DIPHENHYDRAMINE HCL 50 MG/ML VIAL IV PRN (13:12)
[2018-08-27] MEDS ORDERED: MEPERIDINE HCL/PF INJ 25 MG/1 ML DISP.SYRIN IV PRN (13:12)
[2018-08-27] MEDS ORDERED: DEXAMETHASONE SOD PHOSPHATE INJ 4 MG/1 ML VIAL ONE (14:33)
[2018-08-27] MEDS ORDERED: NEOSTIGMINE METHYLSULFATE 10 MG/10 ML VIAL ONE (14:33)
[2018-08-27] MEDS ORDERED: ONDANSETRON HCL INJ/PF 4 MG/2 ML SDV ONE (14:33)
[2018-08-27] MEDS ORDERED: GLYCOPYRROLATE 1 MG/5 ML SYRINGE ONE (14:33)
[2018-08-27] MEDS ORDERED: ROCURONIUM BROMIDE INJ 50 MG/5 ML VIAL IV ONE (14:33)
[2018-08-27] MEDS ORDERED: SUCCINYLCHOLINE CHLORIDE INJ 200 MG/10 ML VIAL ONE (14:33)
[2018-08-27] MEDS ORDERED: ONDANSETRON HCL INJ/PF 4 MG/2 ML SDV IV PRN (14:48)
--- NOTE | 2018-08-27 14:48 | Operative Report ---
Nonrecallable Operative Report DATE OF SURGERY: 08/27/18 PREOPERATIVE DIAGNOSIS: gallstone pancreatitis. cholelithiasis POSTOPERATIVE DIAGNOSIS: same OPERATION: laparoscopic cholecystctomy SURGEON: JERO CORREIA ANESTHESIA: GA - plus 20 mL 1% lidocaine TISSUE REMOVED OR ALTERED: gallbladder COMPLICATIONS: none ESTIMATED BLOOD LOSS: < 5 mL INTRAOPERATIVE FINDINGS: cholelithiasis, soft gallbladder PROCEDURE: see dictation
[2018-08-27] MEDS ORDERED: KETOROLAC TROMETHAMINE INJ/PF 30 MG/1 ML SDV IV PRN (14:52)
[2018-08-27] MEDS ORDERED: PIPERACILLIN SODIUM/TAZOBACTAM 3.375 GM in NORMAL SALINE 100 ML IV SCH (15:00)
[2018-08-27] MEDS ORDERED: FAMOTIDINE INJ/PF 20 MG/2 ML SDV IV SCH (15:00)
[2018-08-27] MEDS ORDERED: ACETAMINOPHEN 1,000 MG/100 ML RTUPB IV SCH (15:00)
[2018-08-27] MEDS ORDERED: KETOROLAC TROMETHAMINE INJ/PF 30 MG/1 ML SDV ONE (15:22)
[2018-08-27] MEDS: ACETAMINOPHEN 1,000 MG/100 ML RTUPB IV SCH (17:50)
[2018-08-28] MEDS: ACETAMINOPHEN 1,000 MG/100 ML RTUPB IV SCH ×3 (00:50→11:26)
[2018-08-28] MEDS: NORMAL SALINE 1000 ML 1,000 ML IV PRN (00:51)
[2018-08-28] MEDS: PIPERACILLIN SODIUM/TAZOBACTAM 3.375 GM in NORMAL SALINE 100 ML IV SCH (04:43)
[2018-08-28 06:25] LABS: ABSOLUTE LYMPHOCYTES (AUTO) 1.3 10^3/uL (0.5-4.7); ABSOLUTE MONOCYTES (AUTO) 0.6 10^3/uL (0.1-1.4); ABSOLUTE NEUT (AUTO) 7.6 10^3/uL (1.7-8.2); BASOPHILS % (AUTO) 0.4 % (0-2); EOSINOPHILS % (AUTO) 0.1 % (0-6); HEMATOCRIT 33.9 % (36.0-47.0); HEMOGLOBIN 11.8 g/dL (12.0-15.5); MEAN CORPUSCULAR HEMOGLOBIN 33.3 pg (27.0-33.4); MEAN CORPUSCULAR HGB CONC 34.7 g/dL (32.0-36.0); MEAN CORPUSCULAR VOLUME 96 fl (80-97); MONOCYTES % (AUTO) 6.1 % (3-13); PLATELET COUNT 232 10^3/uL (150-450); RED BLOOD COUNT 3.54 10^6/uL (3.72-5.28); RED CELL DISTRIBUTION WIDTH 12.6 % (11.5-14.0); SEGMENTED NEUTROPHILS % (AUTO) 79.4 % (42-78); TOTAL CELLS COUNTED % (AUTO) 100 %; WHITE BLOOD COUNT 9.6 10^3/uL (4.0-10.5)
[2018-08-28 06:50] LABS: ALANINE AMINOTRANSFERASE 289 U/L (9-52); ALBUMIN 3.8 g/dL (3.5-5.0); ALKALINE PHOSPHATASE 90 U/L (38-126); AMYLASE 39 U/L (30-110); ANION GAP 11 (5-19); ASPARTATE AMINO TRANSFERASE 110 U/L (14-36); BILIRUBIN,DIRECT 0.5 mg/dL (0.0-0.4); BILIRUBIN,TOTAL 0.7 mg/dL (0.2-1.3); BLOOD UREA NITROGEN 6 mg/dL (7-20); CALCIUM 9.5 mg/dL (8.4-10.2); CARBON DIOXIDE 24 mmol/L (22-30); CHLORIDE 104 mmol/L (98-107); GLUCOSE 100 mg/dL (75-110); LIPASE 40.5 U/L (23-300); TOTAL PROTEIN 6.1 g/dL (6.3-8.2)
--- NOTE | 2018-08-28 07:41 | PDOC PROGRESS REPORT ---
Subjective Progress Note for:: 08/28/18 Subjective:: patient comfortable, tolerating po well Reason For Visit: GALLSTONE PANCREATITIS Physical Exam Vital Signs: Temp Pulse Resp BP Pulse Ox 98.0 F 68 16 125/77 100 08/28/18 04:00 08/28/18 04:00 08/28/18 04:00 08/28/18 04:00 08/28/18 00:00 Intake & Output 08/27/18 08/28/18 08/29/18 05:59 06:59 06:59 Intake Total Output Total Balance Weight General appearance: PRESENT: no acute distress Respiratory exam: PRESENT: clear to auscultation ministerio Cardiovascular exam: PRESENT: RRR GI/Abdominal exam: PRESENT: normal bowel sounds, soft, other - incisions c/d/i Results Laboratory Results: 08/28/18 05:00 08/28/18 05:00 08/27/18 08/27/18 08/27/18 05:24 05:24 05:24 WBC RBC Hgb Hct MCV MCH MCHC RDW Plt Count Seg Neutrophils % Lymphocytes % Monocytes % Eosinophils % Basophils % Absolute Neutrophils Absolute Lymphocytes Absolute Monocytes Absolute Eosinophils Absolute Basophils Sodium 143.7 Potassium 3.2 L Chloride 109 H Carbon Dioxide 23 Anion Gap 12 BUN 7 Creatinine 0.71 Est GFR ( Amer) > 60 Est GFR (Non-Af Amer) > 60 Glucose 72 L Calcium 8.0 L Total Bilirubin 1.3 AST 121 H ALT 279 H Alkaline Phosphatase 84 Total Protein 5.5 L Albumin 2.9 L Amylase 41 Lipase 52.8 Serum HCG, Qual NEGATIVE 08/28/18 08/28/18 05:00 05:00 WBC 9.6 RBC 3.54 L Hgb 11.8 L Hct 33.9 L MCV 96 MCH 33.3 MCHC 34.7 RDW 12.6 Plt Count 232 Seg Neutrophils % 79.4 H Lymphocytes % 14.0 Monocytes % 6.1 Eosinophils % 0.1 Basophils % 0.4 Absolute Neutrophils 7.6 Absolute Lymphocytes 1.3 Absolute Monocytes 0.6 Absolute Eosinophils 0.0 Absolute Basophils 0.0 Sodium 139.0 Potassium 4.0 Chloride 104 Carbon Dioxide 24 Anion Gap 11 BUN 6 L Creatinine 0.75 Est GFR ( Amer) > 60 Est GFR (Non-Af Amer) > 60 Glucose 100 Calcium 9.5 Total Bilirubin 0.7 AST 110 H ALT 289 H Alkaline Phosphatase 90 Total Protein 6.1 L Albumin 3.8 Amylase 39 Lipase 40.5 Serum HCG, Qual Impressions: Abdomen/Pelvis CT 08/25/18 09:57 IMPRESSION: GALLSTONES. NO OTHER SIGNIFICANT OR ACUTE FINDING IN THE ABDOMEN OR PELVIS ON CT SCAN WITH IV CONTRAST. Abdomen MRI 08/26/18 00:00 IMPRESSION: Gallbladder is filled with multiple tiny stones. Pericholecystic fluid. No MR evidence of common duct stones. Imaging reviewed with Dr. Quach Hepatobiliary Scan Nuclear Medicine 08/26/18 00:00 IMPRESSION: Normal exam. Assessment & Plan - Diagnosis (2) Cholelithiasis Qualifiers: Cholelithiasis location: gallbladder Cholecystitis acuity: acute Is this a current diagnosis for this admission?: Yes - Plan Summary Plan Summary: A/ POD#1 after lap funmi VSS, AF patient is tolerating po well Abdomen soft LFT shows normal bilirubin with improved transaminates Normal amylase/lipase P/ Home today Follow up with Surgery Clinic in 2 weeks with COLETTE Mahmood Tylenol as needed for pain Low fat diet (give low fat diet instructions) x 6 months, then can resume r egular diet Alcohol abstinance x 1 year Activities as tolerated No wound care needed Shower immediately, can bathe in 2 meets
[2018-08-28] MEDS: FAMOTIDINE INJ/PF 20 MG/2 ML SDV IV SCH (11:26)
[2018-08-28] MEDS ORDERED: PIPERACILLIN SODIUM/TAZOBACTAM 3.375 GM in NORMAL SALINE 100 ML IV SCH (12:00)
[2018-08-28 13:03] VITALS: BP 109/66
[2018-08-28 13:58] LABS: ALANINE AMINOTRANSFERASE 264 U/L (9-52); ALBUMIN 3.7 g/dL (3.5-5.0); ALKALINE PHOSPHATASE 88 U/L (38-126); ANION GAP 8 (5-19); ASPARTATE AMINO TRANSFERASE 97 U/L (14-36); BILIRUBIN,DIRECT 0.3 mg/dL (0.0-0.4); BILIRUBIN,TOTAL 0.7 mg/dL (0.2-1.3); BLOOD UREA NITROGEN 6 mg/dL (7-20); CALCIUM 9.4 mg/dL (8.4-10.2); CARBON DIOXIDE 26 mmol/L (22-30); CHLORIDE 105 mmol/L (98-107); GLUCOSE 104 mg/dL (75-110); POTASSIUM 3.8 mmol/L (3.6-5.0); SODIUM 139.3 mmol/L (137-145); TOTAL PROTEIN 6.4 g/dL (6.3-8.2)
--- NOTE | 2018-08-29 08:01 | OPERATIVE REPORT E ---
Operative Report NAME: CHACORTA PLATA : 1990 AGE: 28Y DATE OF SURGERY: 08/27/2018 ROOM: 206 PREOPERATIVE DIAGNOSES: 1. GALLSTONE PANCREATITIS. 2. CHOLELITHIASIS. POSTOPERATIVE DIAGNOSES: 1. GALLSTONE PANCREATITIS. 2. CHOLELITHIASIS. OPERATION: Laparoscopic cholecystectomy. SURGEON: JERO CORREIA M.D. [employer]PER[employer] DEPARTMENT: None. BLOOD LOSS: Less than 10 mL. COMPLICATIONS: None. ANESTHESIA: General plus 20 mL of 1% lidocaine without epinephrine. FLUIDS: 800 mL. URINE OUTPUT: Monitored. DRAINS: None. INDICATION AND FINDINGS: This is an obese 28-year-old -[place] female who presented with right upper quadrant pain, epigastric pain, intense nausea, vomiting and found to have gastropancreatitis. The patient underwent appropriate workup, including ultrasound of the liver, CT abdomen and pelvis, as well as an MRCP and HIDA scan because of elevation of the bilirubin, lipase and amylase. However, except for the ultrasound the CT scan revealing a cholelithiasis, The HIDA scan and MRCP were negative for choledocholithiasis. During the authorization the patient's bilirubin, which initially increased to 3.4, had normalized with normalization of the amylase and lipase. The decision was made to take the patient to surgery for a laparoscopic cholecystectomy. The procedure, its benefits, complications including the possibility of bleeding from the liver and injury to the common bile duct which might require transfer to a tertiary center for open repair had been discussed with the patient. She understands all those, her questions were answered, she decided to proceed. DESCRIPTION OF PROCEDURE: The procedure was done in the operating room. The patient was placed in the supine position. General anesthesia induced by endotracheal intubation. The abdomen prepped and draped in the usual fashion. An incision was made just above the umbilicus. She skin was tethered with towel clips and a 5 mm port with Optiview adaptor and scope was inserted through the abdominal wall into the peritoneal cavity. A pneumoperitoneum was established under direct visualization. Three additional ports, a 12 mm and two 5 mm ports were placed in the epigastrium and the right lateral quadrant of the abdomen respectively. The gallbladder was grasped at the level of the fundus, elevated, and retroflexed. The neck pulled anterior to the patient's right to expose the triangle of Calot. A critical view of safety was obtained by dividing the peritoneum of the gallbladder on either side. This was continued towards the cystic neck, the cystic duct. Once this was clearly identified an opening was made posterior to the cystic duct. Following this, the cystic duct was dissected from the cystic cavity. Individually double clipped proximal and distal, divided with scissors. The gallbladder was dissected from the liver bed using the hook cautery at high setting, extracted from the peritoneal cavity with an Endobag. The pneumoperitoneum was then re-established. The liver bed was examined. Small oozing from the liver bed was controlled by cautery. Following this the peritoneal cavity was irrigated with 600 mL of normal saline which was fully aspirated. The epigastric fascial defect was closed with [id number] 0 Vicryl suture was placed with the fascial closure device. The suture was left untied. All instruments and suture were moved, and the pneumoperitoneum was released. All ports were removed. The fascial defect and epigastrium closed with previously placed 0 Vicryl suture. All skin incisions closed with 4-0 Vicryl in a running subcuticular suture with Dermabond. The patient tolerated the procedure well, extubated, and transferred to the recovery room in satisfactory condition. DICTATING PHYSICIAN: JERO CORREIA M.D. [id number] PHY#: [id number] ID: [id number] JOB#: [id number] ACCT: [id number] cc:JERO CORREIA M.D. > MTDD
--- NOTE | 2018-08-29 08:38 | DISCHARGE SUMMARY E ---
Discharge Summary NAME: CHACORTA PLATA : 1990 AGE: 28Y ADMITTED: 08/25/2018 DISCHARGED: 08/28/2018 FINAL DIAGNOSIS: 1. GALLSTONE PANCREATITIS. 2. CHOLELITHIASIS. PROCEDURE: Laparoscopic cholecystectomy on 08/27/2018. COMPLICATIONS: None. HOSPITAL COURSE: Morbidly obese -[place] female admitted for recurrent pain and intense nausea, found to have cholelithiasis together with increased liver enzymes, particularly SGOT and lipase. The patient was diagnosed with gallstone pancreatitis. Patient was admitted and kept n.p.o. on IV fluids. She was started on IV antibiotics Zosyn. An ultrasound of the gallbladder revealed cholelithiasis; a HIDA scan revealed no obstruction of bile ducts, and MRCP which was negative. In the meantime, her blood work revealed normalization of the bilirubin which went from 3.4 to normal value and improvement of amylase and lipase. She underwent laparoscopic cholecystectomy without any complications on August 27. Postoperatively the patient did well without any signs of fever. She was able to tolerate a clear liquid diet. She was advanced to a low-fat diet which was well-tolerated. Blood work upon discharge was within normal limit with normal white cell count, normal bilirubin, slightly elevated AST, ALT, normal amylase and lipase. Physical exam was unremarkable. Her physical exam revealed a soft abdomen with no tenderness; all incisions are clean, dry, and intact. DISCHARGE ORDERS: The patient was discharged on August 28, 2018. Follow up with the surgery office in 2 weeks. No wound care needed. Shower immediately, bath in 2 weeks. Activity as tolerated without limitations. Low-fat diet for 6 months. Alcohol abstinence for about 1 year. Tylenol for pain as well as ice packs applied to the wounds as needed for pain. DICTATING PHYSICIAN: JERO CORREIA M.D. [id number] PHY#: [id number] ID: [id number] JOB#: [id number] ACCT: [id number] cc:Mike FERNANDEZ M.D. > [facility]
== END 2018-08-28 13:34 | disposition home or self-care (01) | DRG 418 ==
LOC: ER 08:29 → EH 14:02 → OBSVTOIN 14:02 → 2N 16:12
PROVIDERS: ADMIT Surgery; ATTEND Surgery
PROC: 0FT44ZZ Resection of Gallbladder, Percutaneous Endoscopic Approach (ICD-10-PCS; principal; 2018-08-27 13:00)
DX: K85.10 Biliary acute pancreatitis without necrosis or infection (principal); K80.00 Calculus of gallbladder with acute cholecystitis without obstruction; E66.01 Morbid (severe) obesity due to excess calories; M19.90 Unspecified osteoarthritis, unspecified site; F32.9 Major depressive disorder, single episode, unspecified; G43.909 Migraine, unspecified, not intractable, without status migrainosus; F17.200 Nicotine dependence, unspecified, uncomplicated; Z83.3 Family history of diabetes mellitus; Z82.49 Family history of ischemic heart disease and other diseases of the circulatory system; Z88.6 Allergy status to analgesic agent
CPT/HCPCS: 36415; 74177; 74181; 78226; 790; 80053; 82150; 83605; 83690; 84703; 85025; 85027; 88304; 96361; 96374; 96375; 99285; A9537; J0131; J0330; J1100; J1170; J1885; J2250; J2270; J2405; J2543; J2704; J2765; J3010; J3490; J7030; Q9969; S0028